=== PATIENT | male | born 1940 | race Caucasian/White ===

== ENCOUNTER 2019-08-12 12:15 | Emergency (ER) | payer MEDICARE, SELFPAY ==
[2019-08-12 12:29] VITALS: BP 131/66; PULSE 96; RESP 18; TEMP 35.8; O2SAT 99
--- NOTE | 2019-08-12 12:29 | ED.SKABFB ---
HPI - Skin/Abscess/Foreign Bdy General Chief complaint: Skin/Abscess/Foreign Body Stated complaint: Possible infected foot Time Seen by Provider: 08/12/19 12:32 Source: patient, family and RN notes reviewed History of Present Illness HPI narrative: Patient is a 78-year-old male who presents to the urgent care with his daughter. Daughter states that she believes he has either dementia or Alzheimer's but he has not been diagnosed because he does not believe in doctors . Daughter states that her mother cut his left toenails approximately 2 weeks ago and believes that she may have clipped the skin to the left second digit. States that over the last few days her mother has noted the toe becoming increasingly red with notable infection. States that her father started complaining 2 days ago of some discomfort in the toe. However, due to patient state of mind, it is difficult to assess pain and he does not answer questions appropriately. Daughter states that she does not believe he is seen a physician in years but does have a follow-up with the primary care doctor in 1 month. Believes that her mother was cutting the toenails because they had grown together . Daughter denies of any known fevers, nausea, vomiting. States that he has been eating and drinking normally. No acute distress noted. Daughter aware of the plan of care. Related Data Allergies Allergy/AdvReac Type Severity Reaction Status Date / Time No Known Allergies Allergy Verified 08/12/19 12:34 Review of Systems Review of Systems: Narrative: ROS completed with the daughter due to patient's Alzheimer's/state of mind CONSTITUTIONAL: Denies fever, chills, or sweats. EYES: Denies visual changes, redness, or discharge. ENT: Denies rhinorrhea, congestion, sore throat, or otalgia. CARDIOVASCULAR: Denies chest pain, palpitations, or edema. RESPIRATORY: Denies cough or dyspnea. GASTROINTESTINAL: Denies abdominal pain, nausea, vomiting, or diarrhea. GENITOURINARY: Denies dysuria or hematuria. SKIN: Denies rash or itching. MUSCULOSKELETAL: Reports of infection to second great toe of the left foot NEUROLOGIC: Denies headache, numbness, or weakness. All other systems reviewed are negative, except as documented in HPI. PENDING SALE TO [facility] Social History Social History Gender identity (if verbalized by the patient): Male Comments At the time of my signature, I reviewed and agree with the nursing past medical, surgical, social, and family history. There is no relevant family history pertinent to the patient complaint. Exam Narrative: Exam Narrative: GENERAL: This is a well-nourished, well-developed patient, in no apparent distress. HEAD: normocephalic, atraumatic. EYES: PERRL. Sclera clear/white. Vision is grossly intact. EARS: External ears normal NOSE: External nose normal with no obvious nasal discharge THROAT: Mucous membranes moist NECK: Neck supple CARDIOVASCULAR: Regular rate and rhythm without murmurs, gallops, or rubs. GASTROINTESTINAL: Abdomen soft, non-tender, nondistended. Bowel sounds are active. No hepato-splenomegaly, or palpable masses. No guarding. NEURO: awake, alert, and oriented to person; undiagnosed Alzheimer's EXTREMITIES: Moderate edema and erythema noted to the second digit of the left toe with approximately 1.5 cm area of necrosis to the base of the nail. Affected left second digit is blanching with capillary refill less than 2 seconds. Positive strong left pedal pulse. Range of motion within normal limits. Difficult to assess pain due to patient's Alzheimer's/state of mind. Left foot with diffuse mild erythema without edema. Course Vital Signs Vital signs: Vital Signs Temperature 96.5 F L 08/12/19 12:29 Pulse Rate 96 08/12/19 12:29 Respiratory Rate 18 08/12/19 12:29 Blood Pressure 131/66 08/12/19 12:29 Pulse Oximetry 99 08/12/19 12:29 Temperature 96.5 F L 08/12/19 12:29 Pulse Rate 96 08/12/19 12:29 Respiratory Rate 18 08/12/19 12:29 B
--- NOTE | 2019-08-12 12:57 | PC.NURSE ---
1247- Wound dressed with abx ointment/ telfa dressing and coban.
== END 2019-08-12 12:47 | disposition home or self-care (01) ==
PROVIDERS: Emergency Provider Nurse Practitioner Family
DX: L03.032 Cellulitis of left toe (principal)
CPT/HCPCS: 99213; G0463